=== PATIENT | male | born 1945 | race Caucasian/White ===

== ENCOUNTER 2022-06-26 12:41 | Inpatient (IN) | payer MEDICARE ==
[2022-06-26 13:58] LABS: #Eosinphils 0.2 10x3/uL (0.0-0.5); #Monocytes 0.7 10x3/uL (0.0-1.1); #Neutrophils 3.1 10x3/uL (1.5-8.4); %Basophils 0.7 % (0.0-2.0); %Eosinophils 3.6 % (0.0-6.0); %Monocytes 11.6 % (0.0-10.0); %Neutrophils 53.9 % (40.0-75.0); Hemoglobin 10.3 g/dL (13.5-17.5); Mean Corpuscular HGB CONC 33.3 g/dL (32.0-36.0); Mean Corpuscular Hemoglobin 29.2 pg (27.0-33.0); Mean Corpuscular Volume 87.5 fl (81.2-95.1); Mean Platelet Volume 9.8 fl (7.4-10.4); Platelet Count 276 10x3/uL (150-450); Red Blood Cell (RBC) Count 3.53 10x6/uL (4.32-5.72); White Blood Cell (WBC) Count 5.8 10x3/uL (3.5-10.5)
[2022-06-26 14:06] LABS: ALT (SGPT) 37 U/L (8-55); AST (SGOT) 27 U/L (5-34); Albumin 3.6 g/dL (3.4-4.8); Alkaline Phosphatase 75 U/L (40-110); Anion Gap 13 mmol/L (10-20); BUN (Urea Nitrogen) 31 mg/dL (8.4-25.7); Bilirubin, Total 0.9 mg/dL (0.2-1.2); Calc. Creatinine Clearance 0 mL/min (70-130); Calcium 8.8 mg/dL (7.8-10.44); Carbon Dioxide 28 mmol/L (23-31); Chloride 101 mmol/L (98-107); Estimated GFR 30; Glucose 248 mg/dL (83-110); Potassium 4.7 mmol/L (3.5-5.1); Protein, Total 6.6 g/dL (5.8-8.1); Sodium 137 mmol/L (136-145)
[2022-06-26] MEDS ORDERED: Furosemide 100 MG/10 ML VIAL ONE (14:09)
[2022-06-26 15:02] LABS: SARS-CoV-2 NAA Rapid Test Not Detected (NotDetected)
[2022-06-26] MEDS ORDERED: Ondansetron PF 4 MG/2 ML Vial IVP PRN (15:22)
[2022-06-26] MEDS ORDERED: Acetaminophen 325 MG TAB PO PRN (15:22)
[2022-06-26] MEDS ORDERED: Senokot S 8.6-50 MG TAB PO PRN (15:22)
[2022-06-26] MEDS ORDERED: Calcium Carbonate 500 MG ChewTAB PO PRN (15:22)
[2022-06-26] MEDS ORDERED: HYDROcodone/Acetaminophen 5/325 mg Tablet PO PRN (15:22)
[2022-06-26] MEDS ORDERED: Dextrose 50% Abboject 50 ML SYRINGE SLOW IVP PRN (15:28)
[2022-06-26] MEDS ORDERED: HumaLOG 300 UNITS/3 ML VIAL SC PRN (15:28)
[2022-06-26] MEDS ORDERED: Dextrose 5% in Water 1,000 ML IV PRN (15:28)
[2022-06-26] MEDS ORDERED: Furosemide 40 MG/4 ML VIAL SLOW IVP SCH (17:00)
[2022-06-26 17:18] LABS: Lactic Acid 1.6 mmol/L (0.5-2.2)
[2022-06-26 17:28] LABS: Troponin I 0.021 ng/mL (< 0.028)
[2022-06-26 20:18] LABS: Troponin I 0.018 ng/mL (< 0.028)
[2022-06-26] MEDS: Albumin 25% 25 GM/100 ML BOT IVPB SCH (23:11)
[2022-06-27 01:19] LABS: Bilirubin Neg (Negative); Blood, Urine Negative (Negative); Clarity Clear (Clear); Glucose, Urine (Dipstick) >=1000 mg/dL (Negative); Ketone, Urine Negative (Negative); Leukocyte Negative (Negative); Nitrite Negative (Negative); Protein, Urine (Dipstick) 15 mg/dl (Neg-Trace); Urobilinogen Normal mg/dL (Less than 2)
[2022-06-27 01:41] LABS: Bacteria/HPF None Seen HPF (None Seen); RBC/HPF None Seen HPF (0-3); Squamous Epithelial None Seen HPF (0-3); WBC/HPF 0-3 HPF (0-3)
[2022-06-27] MEDS: Guaifenesin DM 100-10/5 ML UDCUP PO PRN ×2 (04:15→11:53)
[2022-06-27] MEDS: Albumin 25% 25 GM/100 ML BOT IVPB SCH ×5 (04:16→17:13)
[2022-06-27 04:55] LABS: #Eosinphils 0.3 10x3/uL (0.0-0.5); #Monocytes 0.8 10x3/uL (0.0-1.1); #Neutrophils 3.2 10x3/uL (1.5-8.4); %Basophils 0.6 % (0.0-2.0); %Eosinophils 4.3 % (0.0-6.0); %Lymphocytes 31.1 % (18.0-47.0); %Monocytes 12.5 % (0.0-10.0); %Neutrophils 51.3 % (40.0-75.0); Hemoglobin 9.8 g/dL (13.5-17.5); Mean Corpuscular HGB CONC 33.2 g/dL (32.0-36.0); Mean Corpuscular Hemoglobin 28.8 pg (27.0-33.0); Mean Corpuscular Volume 86.8 fl (81.2-95.1); Mean Platelet Volume 9.9 fl (7.4-10.4); Platelet Count 282 10x3/uL (150-450); RBC Distribution Width 14.8 % (11.5-14.5); White Blood Cell (WBC) Count 6.3 10x3/uL (3.5-10.5)
[2022-06-27 05:05] LABS: Anion Gap 14 mmol/L (10-20); BUN (Urea Nitrogen) 30 mg/dL (8.4-25.7); Calc. Creatinine Clearance 37 mL/min (70-130); Calcium 9.2 mg/dL (7.8-10.44); Carbon Dioxide 28 mmol/L (23-31); Chloride 99 mmol/L (98-107); Estimated GFR 33; Glucose 139 mg/dL (83-110); Potassium 4.2 mmol/L (3.5-5.1); Sodium 137 mmol/L (136-145)
[2022-06-27 08:09] LABS: Magnesium 2.2 mg/dL (1.6-2.6)
[2022-06-27] MEDS: Furosemide 40 MG TAB PO SCH ×3 (09:03→17:13)
[2022-06-27] MEDS: Metoprolol Tartrate 25 MG TAB PO SCH ×2 (09:03→20:45)
[2022-06-27] MEDS: Dextromethorphan Polistirex 30 MG/5 ML SUSPENSION PO SCH ×2 (09:33→20:45)
[2022-06-27] MEDS ORDERED: Furosemide 20 MG/2 ML VIAL SLOW IVP SCH (12:00)
[2022-06-27] MEDS ORDERED: HumaLOG 300 UNITS/3 ML VIAL SC PRN ×2 (12:43)
[2022-06-27] MEDS ORDERED: GUAIFENESIN SF SOLN 200 MG/10 ML UDCUP PO PRN (12:44)
[2022-06-27 13:07] LABS: Hemoglobin A1c 8.2 % (4.0-6.0)
[2022-06-27 14:08] LABS: Creatinine, Urine 37.97 mg/dL (63-166)
[2022-06-27] MEDS ORDERED: EPOETIN ALFA-EPBX (ESRD) 10,000 UNIT/ML VIAL SC SCH (18:15)
[2022-06-27] MEDS ORDERED: Lantus 1000 UNITS/10 ML VIAL SC SCH (21:00)
[2022-06-28 04:09] VITALS: BMI 29.2
[2022-06-28 05:51] LABS: Anion Gap 19 mmol/L (10-20); BUN (Urea Nitrogen) 39 mg/dL (8.4-25.7); Calc. Creatinine Clearance 30 mL/min (70-130); Calcium 9.5 mg/dL (7.8-10.44); Carbon Dioxide 23 mmol/L (23-31); Chloride 99 mmol/L (98-107); Estimated GFR 27; Glucose 133 mg/dL (83-110); Magnesium 2.2 mg/dL (1.6-2.6); Potassium 4.4 mmol/L (3.5-5.1); Sodium 137 mmol/L (136-145)
[2022-06-28] MEDS ORDERED: Furosemide 40 MG TAB PO SCH (07:30)
[2022-06-28] MEDS ORDERED: Ferrous Gluconate 324 MG TAB PO SCH (08:00)
[2022-06-28] MEDS ORDERED: Empagliflozin 10 MG TAB PO SCH (09:00)
[2022-06-28] MEDS ORDERED: Multivitamin W/ Minerals 1 TAB PO SCH (09:00)
[2022-06-28] MEDS ORDERED: CO Q-10 CAPSULE 50 MG PO SCH (09:00)
[2022-06-28] MEDS: Metoprolol Tartrate 25 MG TAB PO SCH (09:26)
[2022-06-28] MEDS: Dextromethorphan Polistirex 30 MG/5 ML SUSPENSION PO SCH (09:30)
[2022-06-28] MEDS ORDERED: Albumin 25% 25 GM/100 ML BOT IVPB SCH (12:00)
[2022-06-28 12:10] VITALS: BP 112/67; TEMP 98.5
== END 2022-06-28 14:45 | disposition home or self-care (01) | DRG 291 ==
LOC: CSHERS 12:41 → CSHTELE 20:40
PROVIDERS: ADMIT Family Medicine; ATTEND Internal Medicine
PROC: 30233J1 Transfusion of Nonautologous Serum Albumin into Peripheral Vein, Percutaneous Approach (ICD-10-PCS; principal; 2022-06-26)
DX: I13.0 Hypertensive heart and chronic kidney disease with heart failure and stage 1 through stage 4 chronic kidney disease, or unspecified chronic kidney disease (principal); I50.43 Acute on chronic combined systolic (congestive) and diastolic (congestive) heart failure; N17.9 Acute kidney failure, unspecified; I25.10 Atherosclerotic heart disease of native coronary artery without angina pectoris; E78.5 Hyperlipidemia, unspecified; N18.30 Chronic kidney disease, stage 3 unspecified; E11.22 Type 2 diabetes mellitus with diabetic chronic kidney disease; E78.2 Mixed hyperlipidemia; I35.0 Nonrheumatic aortic (valve) stenosis; I34.0 Nonrheumatic mitral (valve) insufficiency; I25.118 Atherosclerotic heart disease of native coronary artery with other forms of angina pectoris; E66.9 Obesity, unspecified; Z20.822 Contact with and (suspected) exposure to COVID-19; Z95.1 Presence of aortocoronary bypass graft; Z95.5 Presence of coronary angioplasty implant and graft; Z79.4 Long term (current) use of insulin; Z79.82 Long term (current) use of aspirin; Z79.899 Other long term (current) drug therapy; Z68.29 Body mass index [BMI] 29.0-29.9, adult
CPT/HCPCS: 36415; 36416; 71045; 80048; 80053; 81001; 82570; 83036; 83605; 83735; 83880; 84156; 84443; 84484; 85025; 93005; 96374; J1650; J1815; J1940; P9047; Q5105